=== PATIENT | male | born 1945 | race Caucasian/White ===

== ENCOUNTER 2016-10-07 09:34 | Emergency (ER) | payer MEDICARE ==
[~2016-10-07] VITALS: Ht 180.3 cm; Wt 97.7 kg
[2016-10-07 10:36] LABS: HEMATOCRIT 49.6 % (39.2-51.8); HEMOGLOBIN 16.4 g/dL (13.7-18.0); WHITE BLOOD COUNT 8.1 x10^3/uL (3.4-10)
[2016-10-07 10:49] LABS: BLOOD UREA NITROGEN 14 mg/dL (7-18)
[2016-10-07 10:52] LABS: ASPARTATE AMINO TRANSFERASE 25 U/L (15-37)
[2016-10-07 11:27] VITALS: BP 148/83
== END 2016-10-07 11:32 | disposition home or self-care (01) ==
LOC: ED 10:13
DX: N40.0 Benign prostatic hyperplasia without lower urinary tract symptoms (principal); I10 Essential (primary) hypertension
CPT/HCPCS: 36415; 80053; 81003; 82010; 85025; 93005; 99285

== ENCOUNTER → 2017-02-06 | Outpatient (CLI) | payer MEDICARE | END | disposition home or self-care (01) | LOC: CFH 14:07 | PROVIDERS: ATTEND Internal Medicine Critical Care Medicine | DX: J47.9 Bronchiectasis, uncomplicated (principal); N62 Hypertrophy of breast; K76.0 Fatty (change of) liver, not elsewhere classified; I70.0 Atherosclerosis of aorta | CPT/HCPCS: 71250 ==

== ENCOUNTER → 2017-02-26 | Outpatient (CLI) | payer MEDICARE | END | disposition home or self-care (01) | LOC: CFH 13:33 | PROVIDERS: ATTEND Family Medicine | DX: N62 Hypertrophy of breast (principal) | CPT/HCPCS: 77066 ==

== ENCOUNTER → 2017-08-05 | Outpatient (CLI) | payer MEDICARE ==
[~2017-08-05] MED LIST: GADOBUTROL 10 MMOL/10 ML VIAL ONE
== END | disposition home or self-care (01) ==
LOC: CFH 13:39
PROVIDERS: ATTEND Internal Medicine Critical Care Medicine
DX: I67.82 Cerebral ischemia (principal); R90.82 White matter disease, unspecified; F44.4 Conversion disorder with motor symptom or deficit
CPT/HCPCS: 70553; 82565; A9585

== ENCOUNTER → 2017-08-12 | Outpatient (CLI) | payer MEDICARE | END | disposition home or self-care (01) | LOC: RAD 12:39 | PROVIDERS: ATTEND Internal Medicine Critical Care Medicine | DX: I65.23 Occlusion and stenosis of bilateral carotid arteries (principal); F44.4 Conversion disorder with motor symptom or deficit | CPT/HCPCS: 93880 ==

== ENCOUNTER 2017-10-01 10:13 | Observation (INO) | payer MEDICARE ==
[~2017-10-01] VITALS: Ht 180.3 cm; Wt 94.3 kg
[2017-10-01 10:23] VITALS: BP 142/88
[2017-10-01] MEDS: SODIUM CHLORIDE 0.9% 1,000 ML IV SCH ×2 (10:29→16:03)
[2017-10-01] MEDS ORDERED: CEFAZOLIN PMX 1GM/50ML 50 ML IVPB ONE (10:30)
[2017-10-01] MEDS ORDERED: HYDR25TA11 PO (10:43)
[2017-10-01] MEDS ORDERED: DULO30CA2 PO (10:43)
[2017-10-01] MEDS ORDERED: FEBU80TA2 PO (10:43)
[2017-10-01] MEDS ORDERED: OXYB5TAB7 PO (10:43)
[2017-10-01] MEDS ORDERED: HYDR12.53 PO (10:43)
[2017-10-01] MEDS ORDERED: TAMS0.4C2 PO (10:43)
[2017-10-01] MEDS ORDERED: VITA400C43 PO (10:43)
[2017-10-01] MEDS ORDERED: OXYC-432 PO (10:43)
[2017-10-01] MEDS ORDERED: CHOL100012 PO (10:43)
[2017-10-01] MEDS ORDERED: CYAN100028 PO (10:43)
[2017-10-01] MEDS ORDERED: LOSA25TA5 PO (10:43)
[2017-10-01] MEDS ORDERED: TOLT2TAB4 PO (10:43)
[2017-10-01] MEDS ORDERED: GABA300C10 PO (10:43)
[2017-10-01] MEDS ORDERED: PLEASE ENTER HEIGHT AND WEIGHT MC SCH (11:00)
[2017-10-01 11:01] LABS: BASOPHILS # (AUTO) 0.04 x10^3/uL (0-0.1); BASOPHILS % (AUTO) 0 % (0-1); EOSINOPHILS # (AUTO) 0.07 x10^3/uL (0-0.4); EOSINOPHILS % (AUTO) 1 % (1-7); LYMPHOCYTES # (AUTO) 2.36 x10^3/uL (1-3.4); LYMPHOCYTES % (AUTO) 26 % (22-44); MD NO; MEAN CORPUSCULAR HEMOGLOBIN 30.5 pg (27.5-34.5); MEAN CORPUSCULAR HGB CONC 34.1 g/dL (33.2-36.2); MEAN CORPUSCULAR VOLUME 89.6 fL (81-97); MEAN PLATELET VOLUME 7.2 fL (7.4-10.4); MONOCYTES # (AUTO) 0.53 x10^3/uL (0.2-0.8); MONOCYTES % (AUTO) 6 % (2-9); NEUTROPHILS # (AUTO) 6.02 x10^3/uL (1.8-6.8); NEUTROPHILS % (AUTO) 67 % (42-75); PLATELET COUNT 363 x10^3/uL (130-400); RED BLOOD COUNT 5.45 x10^6/uL (4.38-5.82); RED CELL DISTRIBUTION WIDTH 13.9 % (9.4-14.8)
[2017-10-01 11:13] LABS: ANION GAP 9 mmol/L (5-15); CALCIUM 9.2 mg/dL (8.5-10.1); CHLORIDE 104 mmol/L (98-107)
[2017-10-01 11:16] LABS: ALANINE AMINOTRANSFERASE 49 U/L (12-78); ALKALINE PHOSPHATASE 76 U/L (45-117); BILIRUBIN,TOTAL 0.6 mg/dL (0.2-1.0); CREATININE 1.01 mg/dL (0.7-1.3); TOTAL PROTEIN 8.7 g/dL (6.4-8.2)
[2017-10-01] MEDS ORDERED: CEFAZOLIN 1,000 MG ONE (12:16)
[2017-10-01] MEDS ORDERED: CEFAZOLIN PMX 1GM/50ML 50 ML ONE (12:16)
[2017-10-01] MEDS ORDERED: LIDOCAINE 2%, 50ML ONE (12:16)
[2017-10-01] MEDS ORDERED: MIDAZOLAM 1 MG/ML, 5ML ONE (12:16)
[2017-10-01] MEDS ORDERED: FENTANYL PF 100 MCG/2ML ONE ×2 (12:16→12:48)
[2017-10-01] MEDS ORDERED: MIDAZOLAM 1 MG/ML, 2ML ONE (12:48)
[2017-10-01] MEDS ORDERED: HOLD MEDICATION MC PRN (13:30)
[2017-10-01] MEDS ORDERED: MORPHINE SULFATE 4 MG/ML, 1ML IVPush PRN (13:30)
[2017-10-01] MEDS ORDERED: ONDANSETRON 2MG/ML, 2ML IV PRN (13:30)
[2017-10-01] MEDS ORDERED: ZOLPIDEM 5MG TABLET PO PRN (13:30)
[2017-10-01] MEDS ORDERED: ACETAMINOPHEN 325 MG TABLET PO PRN (13:30)
[2017-10-01] MEDS ORDERED: HYDROcodone/APAP 5/325 TABLET PO PRN (13:30)
[2017-10-01] MEDS: OXYcodone/APAP 10/325MG TABLET PO SCH ×2 (15:16→20:23)
[2017-10-01] MEDS: DILTIAZEM CD 180 MG CAP.ER.24H PO SCH (15:17)
[2017-10-01] MEDS: GABAPENTIN 300 MG CAPSULE PO SCH (20:22)
[2017-10-01] MEDS: SODIUM CHLORIDE FLUSH 10ML SYR IVF SCH (20:22)
[2017-10-01 20:38] VITALS: BP 112/73
[2017-10-01] MEDS: TOLTERODINE 2MG TABLET HOMEMEDPO SCH (21:00)
[2017-10-01] MEDS ORDERED: CEFAZOLIN PMX 1GM/50ML 50 ML IVPB SCH (21:30)
[2017-10-01] MEDS: CEFAZOLIN PMX 1GM/50ML 50 ML IVPB SCH (22:16)
[2017-10-02] MEDS: OXYcodone/APAP 10/325MG TABLET PO SCH ×2 (01:37→08:28)
[2017-10-02 02:06] VITALS: BP 114/76
[2017-10-02] MEDS: CEFAZOLIN PMX 1GM/50ML 50 ML IVPB SCH (05:39)
[2017-10-02 08:23] VITALS: BP 159/89
[2017-10-02] MEDS ORDERED: DILT180C53 PO (08:25)
[2017-10-02] MEDS ORDERED: APIX5TAB PO (08:25)
[2017-10-02] MEDS: DILTIAZEM CD 180 MG CAP.ER.24H PO SCH (08:28)
[2017-10-02] MEDS: GABAPENTIN 300 MG CAPSULE PO SCH (08:28)
[2017-10-02] MEDS: SODIUM CHLORIDE FLUSH 10ML SYR IVF SCH (08:30)
[2017-10-02] MEDS: TOLTERODINE 2MG TABLET HOMEMEDPO SCH (08:31)
[2017-10-02] MEDS ORDERED: OXYBUTYNIN CHLORIDE 5 MG TABLET PO SCH (09:00)
[2017-10-02] MEDS ORDERED: VITAMIN E 400 UNITS CAPSULE PO SCH (09:00)
[2017-10-02] MEDS ORDERED: TAMSULOSIN 0.4 MG CAP.ER.24H PO SCH (09:00)
[2017-10-02] MEDS ORDERED: FEBUXOSTAT 40 MG TABLET PO SCH (09:00)
[2017-10-02] MEDS ORDERED: CHOLECALCIFEROL 1,000 UNIT TABLET PO SCH (09:00)
[2017-10-02] MEDS ORDERED: HYDROCHLOROTHIAZIDE 12.5 MG CAPSULE PO SCH (09:00)
[2017-10-02] MEDS ORDERED: DULOXETINE 30 MG CAPSULE.DR PO SCH (09:00)
[2017-10-02] MEDS ORDERED: CYANOCOBALAMIN 1,000 MCG TABLET PO SCH (09:00)
== END 2017-10-02 10:10 | disposition home or self-care (01) ==
LOC: CACL 10:13 → ORIP 13:22 → 5SO 14:25 → DCLOUNGE 10-02 09:44
PROVIDERS: ADMIT Internal Medicine Cardiovascular Disease; ATTEND Internal Medicine Cardiovascular Disease
DX: I49.5 Sick sinus syndrome (principal); I48.91 Unspecified atrial fibrillation; R41.81 Age-related cognitive decline; I48.0 Paroxysmal atrial fibrillation
CPT/HCPCS: 33208; 36415; 71045; 80053; 85025; 96365; 96366; 99156; 99157; C1779; C1785; C1892; G0378; J0690; J2250; J3010

== ENCOUNTER → 2018-08-13 | Outpatient (CLI) | payer MEDICARE ==
[~2018-08-13] MED LIST changes: +APIX5TAB PO; +CHOL100012 PO; +CYAN100028 PO; +DILT180C53 PO; +DILT180C72 PO; +DULO30CA2 PO; +FEBU80TA2 PO; +GABA300C10 PO; -GADOBUTROL 10 MMOL/10 ML VIAL ONE; +HYDR12.517 PO; +HYDR25TA11 PO; +LOSA25TA25 PO; +OXYB5TAB7 PO; +OXYC-432 PO; +TAMS0.4C2 PO; +TOLT2TAB4 PO; +VENL75TA PO; +VITA400C43 PO
[2018-08-13 11:40] LABS: BASOPHILS # (AUTO) 0.04 x10^3/uL (0-0.1); BASOPHILS % (AUTO) 0 % (0-1); EOSINOPHILS % (AUTO) 1 % (1-7); LYMPHOCYTES # (AUTO) 2.84 x10^3/uL (1-3.4); LYMPHOCYTES % (AUTO) 34 % (22-44); MD NO; MEAN CORPUSCULAR HEMOGLOBIN 30.5 pg (27.5-34.5); MEAN CORPUSCULAR HGB CONC 32.6 g/dL (33.2-36.2); MEAN CORPUSCULAR VOLUME 93.5 fL (81-97); MEAN PLATELET VOLUME 7.2 fL (7.4-10.4); MONOCYTES # (AUTO) 0.57 x10^3/uL (0.2-0.8); MONOCYTES % (AUTO) 7 % (2-9); NEUTROPHILS # (AUTO) 4.74 x10^3/uL (1.8-6.8); NEUTROPHILS % (AUTO) 57 % (42-75); PLATELET COUNT 369 x10^3/uL (130-400); RED BLOOD COUNT 5.33 x10^6/uL (4.38-5.82); RED CELL DISTRIBUTION WIDTH 14.1 % (9.4-14.8)
[2018-08-13 11:52] LABS: MICROSCOPIC AUTO
[2018-08-13 11:53] LABS: CHLORIDE 107 mmol/L (98-107); INTERNATIONAL NORMALIZED RATIO 1.02 (0.93-1.1); PROTHROMBIN TIME 10.7 Seconds (9.6-11.5)
[2018-08-13 11:54] LABS: ALBUMIN 4.1 g/dL (3.4-5.0); ANION GAP 7 mmol/L (5-15); CALCIUM 9.3 mg/dL (8.5-10.1)
[2018-08-13 11:56] LABS: ALANINE AMINOTRANSFERASE 31 U/L (12-78); ALKALINE PHOSPHATASE 86 U/L (45-117); BILIRUBIN,TOTAL 0.4 mg/dL (0.2-1.0); TOTAL PROTEIN 8.4 g/dL (6.4-8.2)
== END | disposition home or self-care (01) ==
LOC: STAR 10:18
PROVIDERS: ATTEND Urology
DX: Z01.818 Encounter for other preprocedural examination (principal); N40.1 Benign prostatic hyperplasia with lower urinary tract symptoms
CPT/HCPCS: 36415; 80053; 81001; 85025; 85610; 85730; 87086; 93005

== ENCOUNTER 2018-08-18 11:02 | Day surgery (SDC) | payer MEDICARE ==
[2018-08-13 10:58] VITALS: BP 135/86
[~2018-08-18] VITALS: Ht 180.3 cm; Wt 91.0 kg
[2018-08-18] MEDS ORDERED: LACTATED RINGERS 1,000 ML IV SCH (12:00)
[2018-08-18] MEDS ORDERED: MIDAZOLAM 1 MG/ML, 2ML ONE (12:53)
[2018-08-18] MEDS ORDERED: FENTANYL PF 250 MCG/5ML ONE (12:53)
[2018-08-18] MEDS ORDERED: ONDANSETRON 2MG/ML, 2ML ONE (13:32)
[2018-08-18] MEDS ORDERED: CEFAZOLIN 1,000 MG ONE (13:32)
[2018-08-18] MEDS ORDERED: PROPOFOL 10 MG/ML, 20ML ONE (13:32)
[2018-08-18] MEDS ORDERED: ROCURONIUM 10 MG/ML,10ML ONE (13:32)
[2018-08-18] MEDS ORDERED: SUCCINYLCHOLINE 20 MG/ML, 10ML ONE (13:32)
[2018-08-18] MEDS ORDERED: DEXAMETHASONE 4 MG/ML, 1ML ONE (13:32)
[2018-08-18] MEDS ORDERED: hydrALAzine 20 MG/ML, 1ML IV PRN (14:00)
[2018-08-18] MEDS ORDERED: MEPERIDINE/PF 25MG/0.5ML IVPush PRN (14:00)
[2018-08-18] MEDS ORDERED: ALBUTEROL SULFATE 2.5 MG/3 ML NPPB PRN (14:00)
[2018-08-18] MEDS ORDERED: LABETALOL 5MG/ML, 20ML IV PRN (14:00)
[2018-08-18] MEDS ORDERED: KETOROLAC 30 MG/1 ML IV PRN (14:00)
[2018-08-18] MEDS ORDERED: HYDROmorphone 1 MG/ML, 1ML INJ IV PRN (14:00)
[2018-08-18] MEDS ORDERED: ONDANSETRON 2MG/ML, 2ML IVPush PRN (14:00)
[2018-08-18] MEDS ORDERED: OXYcodone 5 MG/5 ML ORAL.SOL UDC PO PRN (14:00)
[2018-08-18] MEDS ORDERED: METOCLOPRAMIDE 5 MG/ML, 2ML IV PRN (14:00)
[2018-08-18] MEDS ORDERED: PROMETHAZINE 25 MG/ML, 1ML IV PRN (14:00)
[2018-08-18] MEDS ORDERED: OXYcodone 5 MG/5 ML ORAL.SOL UDC ONE (15:21)
[2018-08-18] MEDS ORDERED: FENTANYL PF 100 MCG/2ML ONE ×2 (15:27→15:39)
[2018-08-18] MEDS: FENTANYL PF 100 MCG/2ML IV PRN ×4 (15:28→15:54)
== END 2018-08-18 17:55 | disposition home or self-care (01) ==
LOC: OR 11:02
PROVIDERS: ATTEND Urology
DX: N40.0 Benign prostatic hyperplasia without lower urinary tract symptoms (principal); N41.0 Acute prostatitis; F41.9 Anxiety disorder, unspecified; I48.91 Unspecified atrial fibrillation; F32.9 Major depressive disorder, single episode, unspecified; I10 Essential (primary) hypertension; Z72.89 Other problems related to lifestyle; Z87.891 Personal history of nicotine dependence; Z88.0 Allergy status to penicillin; Z98.890 Other specified postprocedural states; Z85.828 Personal history of other malignant neoplasm of skin
CPT/HCPCS: 52601; 88305; 88342; J0330; J0690; J1100; J2250; J2405; J2704; J3010; J7120

== ENCOUNTER 2020-05-30 10:54 | Outpatient (CLI) | payer MEDICARE ==
[~2020-05-30 10:54] MED LIST changes: +HYDR-826 PO; -HYDR25TA11 PO; +OXYB5TAB10 PO; -OXYB5TAB7 PO; -OXYC-432 PO; +OXYC1TAB18 PO; +TOLT2TAB PO; -TOLT2TAB4 PO
[2020-05-30] MEDS ORDERED: GADOTERATE 10 MMOL/20ML SYR ONE (11:37)
== END 2020-05-30 23:59 | disposition home or self-care (01) ==
LOC: RAD 10:54
PROVIDERS: ATTEND Psychiatry & Neurology Neurology
DX: G31.9 Degenerative disease of nervous system, unspecified (principal)
CPT/HCPCS: 70553; A9575